=== PATIENT | male | born 1995 | race Caucasian/White ===

== ENCOUNTER 2024-05-29 13:07 | Emergency (ER) | payer BC ==
[~2024-05-29] VITALS: Ht 180.3 cm; Wt 70.0 kg
[2024-05-29 13:09] VITALS: BP 122/78; PULSE 109; RESP 18; TEMP 98; O2SAT 98
[2024-05-30] MEDS ORDERED: PANTOPRAZOLE 40MG DR TABLET PO ONE (23:30)
[2024-05-30] MEDS ORDERED: ONDANSETRON 4MG ODT PO ONE (23:30)
== END 2024-05-29 14:09 | disposition left against medical advice (07) ==
LOC: ER 13:07
DX: F41.9 Anxiety disorder, unspecified (principal); Z53.21 Procedure and treatment not carried out due to patient leaving prior to being seen by health care provider